=== PATIENT | female | born 1945 | race Caucasian/White ===

== ENCOUNTER 2016-12-01 10:13 | Outpatient (CLI) | payer MEDICARE ==
--- OUTSIDE RECORDS SUMMARY | 2016-12-01 10:15 | XMS | Clinical Summary ---
:1945 Author Organization [facility] Address [address] [place] [address] Phone Care Team Providers Name Role Phone , Primary Care Provider Unavailable Allergies Not on File Current Medications Not on file Active Problems Not on file Social History Tobacco Use Types Packs/Day Years Used Date Never Assessed Sex Assigned at Date Recorded Not on file Last Filed Vital Signs Not on file Plan of Treatment Not on file Results Not on filefrom Last 3 Months
--- NOTE | 2016-12-01 12:26 | RAD ---
4 VIEWS CERVICAL SPINE: Date: 12/01/16 COMPARISON: None. HISTORY: Neck pain for 6 months. FINDINGS: AP, lateral, flexion, and extension views of the cervical spine performed. The patient is status pos t anterior fusion of C5 through T1. No perihardware lucency is seen surrounding the anterior plate. The patient is status post posterior fusion of C4 and C5 with bilateral pedicle screws. No preverteb ral soft tissue swelling is seen. The vertebral bodies demonstrate normal alignment without subluxat ion. IMPRESSION: Extensive postsurgical changes of the cervical spine without acute osseous abnormality. POS: [facility]
--- NOTE | 2016-12-01 12:45 | CT ---
CERVICAL SPINE CT WITHOUT CONTRAST: HISTORY: Previous cervical spine surgeries (5). The patient has neck pain. COMPARISON: 07/30/2012 CORRELATION: Cervical spine MRI from 10/19/2016. TECHNIQUE: A cervical spine CT is performed without contrast. Reformatted images are submitted for interpretat ion. FINDINGS: Re-demonstration of post surgical changes involving the cervical spine, consisting of an anterior fu teo plate at C5, C6, C7, and T1. There is a prosthesis at the C5-C6, C6-C7, and C7-T1 disk spaces. With regard to the anterior fusion hardware, there is no perihardware lucency. There are posterio r fusion screws involving the left and right facets, at C4 and C5. No perihardware lucency. Decomp ression of laminectomy changes at C4, C5, C6, C7, and T1 are noted. When compared to the prior CT, there is no significant change in the cervical spine. Based on the axial images, no fracture. Coronal images demonstrate appropriate alignment of the lateral masses of C1 and C2 and the intra-ar ticular facets. The odontoid process is intact. The visualized soft tissue neck structures, the upper mediastinum, and the lung apices are unremarka ble. Limited evaluation of the contents of the central spinal canal and neural foramina due to technique. C2-C3: Central disk osteophyte complex abuts the thecal sac. Mild central canal stenosis. The jorge ral foramina are patent bilaterally. C3-C4: Posterior decompression of laminectomy changes. Generalized disk osteophyte complex. Mild central canal stenosis. Degenerative changes in the right uncovertebral joint and right facet hyper trophy results in moderate to severe right foraminal narrowing. There is moderate left foraminal na rrowing due to degenerative change of the uncovertebral joint and facet hypertrophy. C4-C5: Posterior decompressive laminectomy changes. Central disk osteophyte complex. No high grad e central canal stenosis. Degenerative changes in the right uncovertebral joint result in mild righ t foraminal narrowing. Mild to moderate left foraminal narrowing due to degenerative change of the uncovertebral joint. C5-C6: There is no significant central canal stenosis. Posterior decompressive laminectomy changes are noted. Degenerative changes of the bilateral uncovertebral joints result in moderate right and moderate to severe left foraminal narrowing. C6-C7: There is a central/left paracentral osteophyte complex. Mild central canal stenosis. The r ight neural foramen is mildly narrowed. Mild to moderate left foraminal narrowing. C7-T1: Posterior decompressive laminectomy changes. No high grade central canal stenosis. Mild bi lateral foraminal narrowing. IMPRESSION: 1. Status post cervical fusion changes without evidence of complication or loosening. 2. Central canal stenosis and foraminal narrowing, as detailed above. POS: [facility]
== END 2016-12-01 10:14 | disposition home or self-care (01) ==
LOC: SCSCT 10:13
PROVIDERS: ATTEND Surgery
DX: M54.12 Radiculopathy, cervical region (principal); M48.02 Spinal stenosis, cervical region; Z98.1 Arthrodesis status
CPT/HCPCS: 72050; 72125

== ENCOUNTER 2017-06-08 09:14 | Outpatient (CLI) | payer MEDICARE | END 2017-06-08 09:15 | disposition home or self-care (01) | LOC: BICMAMMO 09:14 | PROVIDERS: ATTEND Family Medicine | DX: Z12.31 Encounter for screening mammogram for malignant neoplasm of breast (principal); Z78.0 Asymptomatic menopausal state; M85.80 Other specified disorders of bone density and structure, unspecified site | CPT/HCPCS: 77063; 77067; 77080 ==

== ENCOUNTER 2018-11-09 13:06 | Outpatient (CLI) | payer MEDICARE ==
--- NOTE | 2018-11-09 14:53 | MRI ---
EXAM: MRI Thoracic Spine WO Con PROVIDED CLINICAL HISTORY: Back pain COMPARISON: None FINDINGS: Thoracic alignment appears normal. Vertebral body heights appear preserved. The thoracic spinal cord demonstrates normal signal and morphology. No focal concerning regional marrow or muscular signal abnormality apparent. No significant facet arthrosis. Small right paracentral disc protrusion at T7-8 , without evidence for significant central canal or foraminal narrowing apparent. IMPRESSION: No significant central canal or foraminal narrowing is apparent.
--- NOTE | 2018-11-09 15:14 | MRI ---
EXAM: MRI Cervical Spine WO Con PROVIDED CLINICAL HISTORY: Cervical radiculopathy COMPARISON: None FINDINGS: Cervical alignment appears normal. Vertebral body heights appear preserved. Changes of anterior fusio n are noted from C5 through T1. Posterior articular pillar screws are noted bilaterally at and C5. Laminectomy changes extend from C4-5 through C7-T1. Regional marrow signal unaffected by metallic aminata ceptibility artifact appears normal. Visualized posterior fossa, cervicomedullary junction and cervical spinal cord demonstrate normal signal and morphology. At C2-3, there is bilateral facet arthritis with mild bilateral foraminal narrowing. No significant c entral canal stenosis apparent. C3-4, there is bilateral facet arthritis and bilateral uncinate process hypertrophy. There is moderat e-severe right foraminal narrowing and mild left foraminal narrowing. No significant central canal stenosis apparent. At C4-5, there is no significant central canal or foraminal narrowing apparent. At C5-6, there is no significant central canal stenosis apparent. Susceptibility artifact limits eval uation. At least moderate left foraminal narrowing. At C6-7, at least moderate left foraminal narrowing due to uncinate process hypertrophy. No significa nt central canal or right foraminal narrowing apparent. At C7-T1, there is no significant central canal or foraminal narrowing apparent. IMPRESSION: Degenerative and postoperative changes involving the cervical spine as described.
== END 2018-11-09 13:07 | disposition home or self-care (01) ==
LOC: SCSMRI 13:06
PROVIDERS: ATTEND Family Medicine
DX: M54.14 Radiculopathy, thoracic region (principal); M47.22 Other spondylosis with radiculopathy, cervical region; Z98.890 Other specified postprocedural states
CPT/HCPCS: 72141; 72146

== ENCOUNTER 2018-12-20 14:35 | Outpatient (CLI) | payer MEDICARE ==
--- NOTE | 2018-12-20 17:37 | CT ---
CERVICAL SPINE CT WITHOUT CONTRAST: Date: 12/20/18 COMPARISON: 12/01/16. HISTORY: Cervical radiculopathy. TECHNIQUE: Axial CT imaging at 2 mm intervals through the cervical spine with coronal and sagittal reformatted i maging. FINDINGS: Imaged lung apices are unremarkable. Evaluation for central canal and/or neural foraminal stenosis is limited on routine CT. Anterior diskectomy and fusion hardware is present at C5-6/C6-7/C7-T1, stable when compared to the prior examination. There is no anterolisthesis or retrolisthesis seen within th e cervical spine. Cervical vertebral body height and alignment is stable when compared to the 2017 ex am. There is stable prominent degenerative change at the atlantoaxial interspace. The occipital condyles, the dens, and the C1-2 articulation appear within normal limits. There is posterior fusion hardware at C4-5 with bilateral pedicle screws and vertically oriented inte rlocking rods, stable as well. The C1 ring is intact. C2-3: Bilateral facet and uncovertebral osteophyte formation, left greater than right. No osseous ca use of significant central canal or neural foraminal stenosis. C3-4: Bilateral facet and uncovertebral osteophyte formation, right greater than left. There is stab le severe right and mild left neural foraminal stenosis. C4-5: Bilateral laminectomy changes are present. Mild bilateral facet hypertrophy. No osseous cause of significant central canal or neural foramina stenosis. C5-6: Bilateral facet hypertrophy and uncovertebral osteophyte formation, right greater than left, s table. Stable bilateral laminectomy change and stable moderate bilateral neural foraminal stenosis. C6-7: Stable bilateral uncovertebral osteophyte formation and bilateral laminectomy change. No osseo us cause of significant central canal or neural foraminal stenosis. C7-T1: Bilateral laminectomy change present. No osseous cause of significant central canal or neural foraminal stenosis. No acute fracture or dislocation. IMPRESSION: Stable cervical spine CT examination as described above. POS: [facility]
== END 2018-12-20 14:36 | disposition home or self-care (01) ==
LOC: TBSIIMAG 14:35
PROVIDERS: ATTEND Neurological Surgery
DX: M54.12 Radiculopathy, cervical region (principal); Z98.890 Other specified postprocedural states
CPT/HCPCS: 72125

== ENCOUNTER 2019-01-23 07:27 | Day surgery (SDC) | payer MEDICARE ==
[2019-01-22 12:04] VITALS: BMI 34.4
[2019-01-23 08:42] LABS: #Eosinphils 0.2 thou/uL (0.0-0.7); #Lymphocytes 1.8 thou/uL (1.20-3.40); #Monocytes 0.4 thou/uL (0.11-0.59); #Neutrophils 2.7 thou/uL (1.40-6.50); %Basophils 0.8 % (0.0-1.0); %Eosinophils 3.3 % (0.0-10.0); %Lymphocytes 34.8 % (21.0-51.0); %Monocytes 8.3 % (0.0-10.0); %Neutrophils 52.7 % (42.0-75.0); Hemoglobin 12.5 g/dL (12.0-16.0); Mean Corpuscular HGB CONC 32.9 g/dL (32.0-36.0); Mean Corpuscular Hemoglobin 31.7 pg (27.0-31.0); Mean Corpuscular Volume 96.3 fL (78.0-98.0); Mean Platelet Volume 10.6 fL (7.4-10.4); Platelet Count 131 thou/uL (130-400); RBC Distribution Width 11.9 % (11.5-14.5); Red Blood Cell (RBC) Count 3.95 mill/uL (4.20-5.40); White Blood Cell (WBC) Count 5.2 thou/uL (4.8-10.8)
[2019-01-23 09:04] LABS: Anion Gap 11 mmol/L (10-20); BUN (Urea Nitrogen) 9 mg/dL (9.8-20.1); Calc. Creatinine Clearance 82 mL/min (70-130); Calcium 9.3 mg/dL (7.8-10.44); Carbon Dioxide 29 mmol/L (23-31); Chloride 102 mmol/L (98-107); Estimated GFR-MDRD 55; Glucose 83 mg/dL (83-110); Potassium 4.2 mmol/L (3.5-5.1); Sodium 138 mmol/L (136-145)
[2019-01-23] MEDS ORDERED: Lidocaine 1% PF 5 ML VIAL ONE (10:07)
[2019-01-23] MEDS ORDERED: Dexamethasone 20 MG/5 ML VIAL ONE (10:07)
[2019-01-23] MEDS ORDERED: Glycopyrrolate 0.2 MG/ML 5 ML SYRINGE ONE (10:07)
[2019-01-23] MEDS ORDERED: Rocuronium Bromide 10 MG/ML (10ML VIAL) ONE (10:07)
[2019-01-23] MEDS ORDERED: Ondansetron PF 4 MG/2 ML Vial ONE (10:07)
[2019-01-23] MEDS ORDERED: PROPOFOL 200 MG/20 ML VIAL ONE (10:07)
[2019-01-23] MEDS ORDERED: ePHEDrine/0.9% NaCl/PF SYRINGE 50 mg/10 ml ONE (10:07)
--- NOTE | 2019-01-23 17:30 | OP ---
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 DIAGNOSIS: Cervical radiculopathy. PROCEDURE PERFORMED: Reoperation bilateral C3-4 hemilaminectomies and foraminotomies. ANESTHESIA: General. DESCRIPTION OF PROCEDURE: The patient was brought into the operating room and placed under general anesthesia. She was flipped from the supine to prone position on the operating room table. A linear incision was planned at the top portion of a prior incision at the C3-C4 segment. After prepping and draping and after an appropriate operative pause, the incision was created. The soft tissues were swept away from midline. Self-retaining retractors were placed in the wound for optimal exposure. After confirming appropriate levels with the C-arm fluoroscopy, high-speed cutting drill bit as well as 1 and 2 mm Kerrisons were used to perform foraminotomies of the exiting C4 nerve roots bilaterally. After decompressing the segment bilaterally, the wound was irrigated. Hemostasis was maintained throughout. The wound was then closed in anatomic layers and a pressure dressing was applied. There were no known procedural complications. Job ID: [id number]
== END 2019-01-23 14:25 | disposition home or self-care (01) ==
LOC: SDC 07:27
PROVIDERS: ATTEND Neurological Surgery
PROC: 01N10ZZ Release Cervical Nerve, Open Approach (ICD-10-PCS; principal; 2019-01-23)
DX: M54.12 Radiculopathy, cervical region (principal); I10 Essential (primary) hypertension; E03.9 Hypothyroidism, unspecified; Z87.891 Personal history of nicotine dependence; Z79.891 Long term (current) use of opiate analgesic; Z79.899 Other long term (current) drug therapy; Z88.5 Allergy status to narcotic agent; Z88.7 Allergy status to serum and vaccine; Z88.8 Allergy status to other drugs, medicaments and biological substances; Z91.048 Other nonmedicinal substance allergy status; Z98.1 Arthrodesis status
CPT/HCPCS: 36415; 76000; 80048; 85025; 93005; 93010; J1100; J2001; J2405; J2704

== ENCOUNTER 2019-04-02 13:28 | Outpatient (CLI) | payer MEDICARE ==
--- NOTE | 2019-04-02 14:06 | MMO ---
Bilateral MAMMO Bilat Screen [facility]. CLINICAL HISTORY: Patient is 73 years old and is seen for screening. The patient has no family history of breast cancer. The patient has no personal history of cancer. VIEWS: The views performed were: bilateral craniocaudal with tomosynthesis and bilateral mediolateral oblique with tomosynthesis. FILMS COMPARED: The present examination has been compared to prior imaging studies performed at [facility] on 05/19/2011 and 06/08/2017, at [facility] on 07/15/2008, and at [facility] on 09/16/2015. This study has been interpreted with the assistance of computer-aided detection. MAMMOGRAM FINDINGS: There are scattered fibroglandular densities. There are no suspicious masses, suspicious calcifications, or new areas of architectural distortion. IMPRESSION: THERE IS NO MAMMOGRAPHIC EVIDENCE OF MALIGNANCY. A ROUTINE FOLLOW-UP MAMMOGRAM IN 1 YEAR IS RECOMMENDED. THE RESULTS OF THIS EXAM WERE SENT TO THE PATIENT. ACR BI-RADS Category 1 - Negative MAMMOGRAPHY NOTE: 1. A negative mammogram report should not delay a biopsy if a dominant of clinically suspicious mass is present. 2. Approximately 10% to 15% of breast cancers are not detected by mammography. 3. Adenosis and dense breasts may obscure an underlying neoplasm. Reported by: BECKY BROWNING MD Electonically Signed: [id number]
== END 2019-04-02 13:29 | disposition home or self-care (01) ==
LOC: BICMAMMO 13:28
PROVIDERS: ATTEND Family Medicine
DX: Z12.31 Encounter for screening mammogram for malignant neoplasm of breast (principal)
CPT/HCPCS: 77063; 77067

== ENCOUNTER 2019-09-10 10:14 | Outpatient (CLI) | payer MEDICARE ==
--- NOTE | 2019-09-10 11:10 | CT ---
Exam: CT cervical spine without contrast HISTORY: Cervical radiculopathy. Patient had 7 prior cervical spine surgeries. COMPARISON: 12/20/2018 FINDINGS: No craniocervical dissociation. Appropriate alignment of the lateral masses of C1 and C2. Intact odon toid process Appropriate alignment of the facets. Anterior fusion plate with transvertebral body screw at C5, C6, C7 and T1. Metallic spacer in the C5-C6, C6-C7 and C7-T1 disc spaces. Posterior element fusion changes at C4 and C5. Laminectomy defect at C5, C6, C7 and T1. Soft tissue neck structures: No mass, lymphadenopathy or hematoma. No prevertebral soft tissue swelli ng. Upper mediastinum and lung apices: Unremarkable Central spinal canal: Limited evaluation due to technique. C2-C3: Central disc herniation. Mild central canal stenosis. Right neural foramen is patent. Mild lef t foraminal narrowing due to uncovertebral hypertrophy. C3-C4: Broad-based disc osteophyte complex without significant central canal stenosis. Posterior lami nectomy defect. Severe right and [id number] left foraminal narrowing. There is severe right facet hypertrophy along with degenerative changes of the uncovertebral joint. C4-C5: Posterior laminectomy defect. No significant central canal stenosis. Mild to moderate right an d moderate to severe left foraminal narrowing. C5-C6: Broad-based osteophyte complex. No significant central canal stenosis. Posterior laminectomy d efect. Severe bilateral neural foraminal narrowing. C6-C7: Central left paracentral osteophyte ridge. Mild central canal stenosis. Moderate right and mod erate to severe left neural foraminal narrowing. C7-T1: Disc prosthesis. Posterior laminectomy defect. No significant central canal stenosis. Mild mary kate ateral neural foraminal narrowing. T1-T2: No significant central canal stenosis or significant neural foraminal narrowing. Vertebral bodies: Cervical spine vertebral body height is maintained. No fracture. IMPRESSION: 1. Extensive fusion changes of the cervical spine as described above. 2. Varying degrees of central canal stenosis and neural foraminal narrowing. When compared to the pre vious examination, no appreciable change. Transcribed Date/Time: 09/10/2019 11:37 AM
== END 2019-09-10 10:15 | disposition home or self-care (01) ==
LOC: TBSIIMAG 10:14
PROVIDERS: ATTEND Neurological Surgery
DX: M54.12 Radiculopathy, cervical region (principal); M48.061 Spinal stenosis, lumbar region without neurogenic claudication; Z98.1 Arthrodesis status
CPT/HCPCS: 72125

== ENCOUNTER 2022-02-03 12:33 | Outpatient (CLI) | payer MEDICARE | END 2022-02-03 12:34 | disposition home or self-care (01) | LOC: SCSMRI 12:33 | PROVIDERS: ATTEND Family Medicine | DX: M47.24 Other spondylosis with radiculopathy, thoracic region (principal); M51.14 Intervertebral disc disorders with radiculopathy, thoracic region; M47.22 Other spondylosis with radiculopathy, cervical region; M96.1 Postlaminectomy syndrome, not elsewhere classified; Z98.890 Other specified postprocedural states | CPT/HCPCS: 72141; 72146 ==

== ENCOUNTER 2022-06-27 06:31 | Day surgery (SDC) | payer MEDICARE ==
[2022-06-27 07:22] VITALS: BP 139/70; TEMP 98.4
== END 2022-06-27 09:30 | disposition home or self-care (01) ==
LOC: RAD 06:31
PROVIDERS: ATTEND Neurological Surgery
PROC: B02B1ZZ Computerized Tomography (CT Scan) of Spinal Cord using Low Osmolar Contrast (ICD-10-PCS; principal; 2022-06-27)
DX: M54.12 Radiculopathy, cervical region (principal); M48.02 Spinal stenosis, cervical region; M48.03 Spinal stenosis, cervicothoracic region; M51.34 Other intervertebral disc degeneration, thoracic region; M43.16 Spondylolisthesis, lumbar region; Z79.890 Hormone replacement therapy; Z79.899 Other long term (current) drug therapy; Z88.5 Allergy status to narcotic agent; Z88.7 Allergy status to serum and vaccine; Z88.8 Allergy status to other drugs, medicaments and biological substances; Z98.1 Arthrodesis status
CPT/HCPCS: 62302; 72126

== ENCOUNTER 2022-07-04 05:34 | Day surgery (SDC) | payer MEDICARE ==
[2022-07-01 10:58] VITALS: BMI 36.0
[2022-07-04 06:59] LABS: Anion Gap 16 mmol/L (10-20); BUN (Urea Nitrogen) 20 mg/dL (9.8-20.1); Carbon Dioxide 25 mmol/L (23-31); Chloride 102 mmol/L (98-107); Potassium 4.6 mmol/L (3.5-5.1); Sodium 138 mmol/L (136-145)
[2022-07-04 07:00] LABS: Calc. Creatinine Clearance 61 mL/min (70-130); Calcium 10.3 mg/dL (7.8-10.44); Estimated GFR 42; Glucose 87 mg/dL (83-110)
[2022-07-04] MEDS ORDERED: PROPOFOL 200 MG/20 ML VIAL ONE (07:15)
[2022-07-04] MEDS ORDERED: Ondansetron PF 4 MG/2 ML Vial ONE (07:15)
[2022-07-04] MEDS ORDERED: ePHEDrine Sulfate 50 MG/10 ML VIAL ONE (07:15)
[2022-07-04] MEDS ORDERED: Rocuronium Bromide 10 MG/ML (10ML VIAL) ONE (07:15)
[2022-07-04] MEDS ORDERED: NEOSTIGMINE 3 MG/3 ML SYR 3 MG/3 ML SYRINGE ONE (07:15)
[2022-07-04] MEDS ORDERED: Glycopyrrolate 0.2 MG/ML 5 ML SYRINGE ONE (07:15)
[2022-07-04] MEDS ORDERED: Dexamethasone 20 MG/5 ML VIAL ONE (07:15)
[2022-07-04 07:27] LABS: #Eosinphils 0.2 thou/uL (0.0-0.7); #Lymphocytes 1.7 thou/uL (1.20-3.40); #Monocytes 0.4 thou/uL (0.11-0.59); #Neutrophils 2.5 thou/uL (1.40-6.50); %Basophils 0.5 % (0.0-1.0); %Eosinophils 3.3 % (0.0-10.0); %Monocytes 7.7 % (0.0-10.0); %Neutrophils 52.4 % (42.0-75.0); Hemoglobin 13.6 g/dL (12.0-16.0); Mean Corpuscular HGB CONC 34.5 g/dL (32.0-36.0); Mean Corpuscular Hemoglobin 33.3 pg (27.0-31.0); Mean Corpuscular Volume 96.4 fl (78.0-98.0); Mean Platelet Volume 11.9 fL (7.4-10.4); Platelet Count 146 10x3/uL (130-400); White Blood Cell (WBC) Count 4.8 10x3/uL (4.8-10.8)
== END 2022-07-04 13:58 | disposition home or self-care (01) ==
LOC: SDC 05:34
PROVIDERS: ATTEND Neurological Surgery
PROC: 01N10ZZ Release Cervical Nerve, Open Approach (ICD-10-PCS; principal; 2022-07-04)
DX: M54.12 Radiculopathy, cervical region (principal); I10 Essential (primary) hypertension; E03.9 Hypothyroidism, unspecified; G89.4 Chronic pain syndrome; M54.9 Dorsalgia, unspecified; Z87.891 Personal history of nicotine dependence; Z79.890 Hormone replacement therapy; Z79.899 Other long term (current) drug therapy; Z88.5 Allergy status to narcotic agent; Z88.7 Allergy status to serum and vaccine; Z88.8 Allergy status to other drugs, medicaments and biological substances; Z98.1 Arthrodesis status
CPT/HCPCS: 80048; 85025; 93005; 93010; J1100; J2405; J2704

== ENCOUNTER 2023-04-04 13:43 | Outpatient (CLI) | payer MEDICARE | END 2023-04-04 13:44 | disposition home or self-care (01) | LOC: SCSMRI 13:43 | PROVIDERS: ATTEND Family Medicine | DX: M51.24 Other intervertebral disc displacement, thoracic region (principal) | CPT/HCPCS: 72146 ==

== ENCOUNTER 2023-08-03 18:36 | Emergency (ER) | payer MEDICARE ==
[2023-08-03] MEDS ORDERED: Morphine 4 MG/ML VIAL ONE (19:16)
[2023-08-03] MEDS ORDERED: Ketorolac Tromethamine 30 MG (1 mL) VIAL ONE (19:16)
== END 2023-08-03 19:15 | disposition home or self-care (01) ==
LOC: ERS 18:36
DX: S92.152A Displaced avulsion fracture (chip fracture) of left talus, initial encounter for closed fracture (principal); I10 Essential (primary) hypertension; Z87.891 Personal history of nicotine dependence; X58.XXXA Exposure to other specified factors, initial encounter
CPT/HCPCS: 29515; 73610; 73630; 96374; 96375; 99283; J1885; J2270

== ENCOUNTER 2023-10-27 06:50 | Day surgery (SDC) | payer MEDICARE ==
[2023-10-27] MEDS ORDERED: Iopamidol 15 ML ONE (08:10)
[2023-10-27] MEDS ORDERED: Sodium Bicarbonate 2.5 MEQ/5 ML SDV ONE (08:10)
[2023-10-27] MEDS ORDERED: Lidocaine 1% PF 5 ML VIAL ONE (08:49)
[2023-10-27 11:08] VITALS: BP 127/70
== END 2023-10-27 10:40 | disposition home or self-care (01) ==
LOC: RAD 06:50
PROVIDERS: ATTEND Neurological Surgery
PROC: B02BYZZ Computerized Tomography (CT Scan) of Spinal Cord using Other Contrast (ICD-10-PCS; principal; 2023-10-27)
DX: M54.12 Radiculopathy, cervical region (principal); M54.6 Pain in thoracic spine; Z88.8 Allergy status to other drugs, medicaments and biological substances; Z88.7 Allergy status to serum and vaccine; Z88.5 Allergy status to narcotic agent
CPT/HCPCS: 62305; 72126; 72129; Q9967

== ENCOUNTER 2024-12-09 10:04 | Outpatient (CLI) | payer MEDICARE | END 2024-12-09 10:05 | disposition home or self-care (01) | LOC: BICCT 10:04 | PROVIDERS: ATTEND Neurological Surgery | DX: M47.22 Other spondylosis with radiculopathy, cervical region (principal); M48.02 Spinal stenosis, cervical region | CPT/HCPCS: 72125 ==